=== PATIENT | female | born 1965 | race Caucasian/White ===

== ENCOUNTER 2025-04-30 10:19 | Day surgery (SDC) | payer OTHER, SELFPAY ==
[2025-04-03 13:02] VITALS: BMI 38.7
[2025-04-03 13:12] LABS: Hematocrit 42.6 % (37.0-47.0); Hemoglobin 14.0 g/dL (12.0-16.0); Mean Corp Hgb Conc. 32.9 g/dL (33.0-37.0); Mean Corpuscular Volume 87.5 fL (81.0-99.0); Nucleated Red Blood Cells % 0 %; Platelet Count 226 10^3/uL (130-400); Red Cell Dist. Width 13.1 % (11.5-14.5)
[2025-04-03 13:30] LABS: INR 1.11; PT 14.6 Sec (11.4-14.6)
[2025-04-03 15:25] LABS: ALT (SGPT) 29 U/L (0-35); AST (SGOT) 23 U/L (14-36); Albumin 4.5 g/dl (3.5-5.0); Alkaline Phosphatase 83 U/L (38-126); Blood Urea Nitrogen 16 mg/dl (7-17); Calcium 9.5 mg/dl (8.4-10.2); Carbon Dioxide 28 mmol/L (22-30); Chloride 107 mmol/L (98-107); Estimated Creatinine Clearance > 125 ml/min; Glucose 114 mg/dl (70-99); Magnesium 1.9 mg/dl (1.6-2.3); Potassium 4.4 mmol/L (3.5-5.1); Sodium 140 mmol/L (135-145); Total Protein 7.4 g/dl (6.3-8.2); eGFR > 60.00
--- NOTE | 2025-04-08 10:00 | W.SUR.PREOP ---
Pre-Operative Surgical Note
-
Per Bishnu in scheduling, the patient will not need a chest CT prior to PVI.
She previously underwent a PVI here in 06/2021. She did have a chest CT done in preparation for that procedure (see [facility] records).
[2025-04-30] VITALS (20 sets, daily range): BP systolic 125–175; BP diastolic 66–97; BMI 40.1
[2025-04-30 13:45] LABS: ACT-LR - POC 255 Seconds (116-155)
--- NOTE | 2025-04-30 14:09 | ITS.CL.ABL ---
Gag Writer - Ablation
Ablation
Procedure Report:
ELECTROPHYSIOLOGY ABLATION STUDY
DATE:: April 30, 2025�����������������������������REFERRING: Dr. Rahul Kapoor
INDICATION: Paroxysmal supraventricular tachycardia in the form of atrial fibrillation.� Prior history of PVI in 2020 with 28 mm cryoballoon
HISTORY: See H and P.��As above
ANTIARRHYTHMIC DRUG: Sotalol 80 mg twice daily
PRE-PROCEDURE SOFY: No intracardiac thrombus
PRESENTING RHYTHM: Sinus
'TIME-OUT':��called and confirmed.
SEDATION/ANESTHESIA:��provided via the anesthesia department using general anesthesia (LMA).
INTRAVENOUS/ARTERIAL ACCESS:
Right femoral venous - 8Fr
Left femoral venous - 8 Fr, 6 Fr
[id number] suture bilaterally
Ultrasound guidance for bilateral femoral vein access was utilized by me to obtain access with demonstration of normal anatomy
CHADS-VASC Score:
HAS-Bled Score
PROCEDURE:
1.��A decapolar CS catheter was placed within the CS for mapping and pacing.��This was also used as the reference catheter for the 3-D map.
2. The intracardiac ultrasound catheter was positioned in the RA to identify the FO for targeting of transseptal puncture, assist��in identification of the pulmonary vein ostia, monitoring pre and post ablation pulmonary vein flow velocities,
monitoring for 'bubble' formation during RF application as a sign of thermal injury,��and to monitor for pericardial effusion during mapping and ablation procedure.���Left atrial size, LV ejection fraction, and pulmonary vein flows were monitored
pre and post ablation procedure. The other valves were inspected and found to be free of significant regurgitation or stenosis.
3.��Half of the calculated heparin bolus was administered prior to the first transeptal puncture.��Transseptal puncture was performed to diagnose RA and LA pressure so that safetey of LA mapping and ablation could be further assessed, and to access
the left atrium and pulmonary veins for mapping and ablation.��This entailed advancing an 16.8 Fr RF wire, sheath with dilator into the superior vena cava and withdrawing both (monitoring intracardiac ultrasound, fluoroscopy and tip pressure) with
the tip oriented toward the atrial septum.��The fossa ovalis was engaged (indicated by sudden displacement of the sheath tip as well as tenting of the fossa seen on intracardiac ultrasound).��Left atrial access required a pass with the VersaCross RF
wire.��Left atrial catheter position was confirmed by pressure monitoring (RA mean pressure 4 mm Hg and LA mean presure 10 mm Hg), LA saturation (99%),��as well as fluoroscopy.��The sheath was advanced over the dilator and positioned in the left
atrium.��This procedure was repeated for the Agilis sheath.��The remainder of the calculated heparin bolus was administered and heparin was
infused to maintain ACT at 300 -350 seconds throughout the case.
4.��RA pacing was performed via the proximal decapolar poles and LA pacing was performed via the distal decapolr poles.
5. A quadrapolar catheter was first positioned at the His position for His Bundle recording which was tagged via the 3-D Navex sytem, and then passed to the RVA for RV pacing and recording.
6. The Penta spline and grid catheter were placed in each of the LIPV, LSPV, RSPV and the RIPV.��
7.��Next, a 3-D map was created using Navex.���A 3-D reconstructed CT image was compared to the 3-D Navex map to assist in anatomic interpretation, mapping and ablation.��The CT image and the NavX image were fused.
8 there was focal connection at the roof outside the left superior pulmonary vein. Interestingly we put the patient into atrial fibrillation in the left inferior pulmonary vein with exit block to the atrium with sinus rhythm in the atrium and
atrial fibrillation in the left inferior pulmonary vein. We then performed all of pose lesions x 4 to the left inferior pulmonary vein which converted atrial fibrillation with in the left inferior pulmonary vein to sinus rhythm. All of in basket
poses were given to the left superior pulmonary vein isolating this vein leading to entrance and exit block in all 4 pulmonary veins. We then performed flutter pose to the roof posterior wall and floor of the left atrium with entrance and exit
block in the roof posterior wall and floor of left atrium. A total of 39 lesions were given to the left atrium. EP study post procedure did not demonstrate any other focal arrhythmia..
9. Normal sinus node and AV node function noted.
TOTAL FLOURO TIME: 11.1 minutes 103 mGy
TOTAL RF DURATION: 0 minutes
REVERSAL OF HEPARIN: 35 mg of protamine, slow IV administration
COMPLICATIONS:
None
Intracardiac US shows no pericardial effusion post ablation.
SUMMARY:��
Complex left atrial mapping and ablation.
Reisolation of left superior pulmonary vein at the roof. Posterior wall isolation as above.
RECOMMENDATIONS:
1. Ambulate in 4 hours
2. Resume anticoagulation
3.��Consider same-day discharge
4.��Sotalol for 3 months then consider discontinuation
Copy to: Dr. Rahul Kapoor
--- NOTE | 2025-04-30 16:43 | W.PN.UPDATE ---
Update Note
Progress Note Update
59 yo WF s/p PVI (same day). She denies cp, sob, sylvester clears, EKG SR, b/l groins F08 intact. She will resume xarelto tonight after 8pm. She will continue sotalol. Activity restrictions reviewed with her and her daughter at bedside. She will f/u
[facility] in 1 mo. She is for d/c home after 7p if groins stable and voiding.
--- NOTE | 2025-04-30 18:09 | PTCARENOTE ---
Assumed care of patient. VSS, groins CDI. Updated on plan of care.
[2025-04-30] MEDS: LIPITOR 20 MG PO (18:11)
== END 2025-04-30 19:00 | disposition home or self-care (01) ==
LOC: CATH 10:19
PROVIDERS: ATTENDING PHYSICIAN Internal Medicine Cardiovascular Disease; FAMILY PHYSICIAN Internal Medicine; OTHER PHYSICIAN Internal Medicine Cardiovascular Disease
DX: I48.0 Paroxysmal atrial fibrillation (principal); Z79.899 Other long term (current) drug therapy; I10 Essential (primary) hypertension; E78.5 Hyperlipidemia, unspecified; E11.9 Type 2 diabetes mellitus without complications; G89.29 Other chronic pain; M54.50 Low back pain, unspecified; Z79.01 Long term (current) use of anticoagulants; E66.9 Obesity, unspecified; Z68.38 Body mass index [BMI] 38.0-38.9, adult
CPT/HCPCS: C1732; C1894; C1730; C1769; C1892; C1759; 36415; 80053; 83735; 85025; 85610; 86850; 86900; 86901; 93005; 93656; 93657; C1733; C1766